=== PATIENT | male | born 1990 | race African-American/Black ===

== ENCOUNTER 2016-09-21 04:32 | Emergency (ER) | payer OTHER ==
[~2016-09-21 04:32] MED LIST: AMOXICILLIN500 M1 PO; IBUPROFEN600 MG PO; IBUPROFEN800 MG PO; ZYRTEC PO
[2016-09-21 05:21] LABS: URINE SOURCE CLEAN CATCH
[2016-09-21 05:50] LABS: URINE APPEARANCE CLEAR; URINE BILIRUBIN NEG (NEG); URINE BLOOD NEG (NEG); URINE COLOR YELLOW; URINE GLUCOSE NEG (NEG); URINE KETONE TRACE (NEG); URINE LEUKOCYTE ESTERASE NEG (NEG); URINE NITRATE NEG (NEG); URINE PROTEIN TRACE (NEG)
[2016-09-21 05:58] LABS: CULTURE INDICATED? NO
[2016-09-23 23:06] LABS: CHLAMYDIA TRACH Not Detected (Not Detected); N GONOR Not Detected (Not Detected)
== END 2016-09-21 06:35 | disposition home or self-care (01) ==
LOC: CED 04:32
PROVIDERS: Nurse Practitioner
DX: R59.1 Generalized enlarged lymph nodes (principal)
CPT/HCPCS: 81003; 87491; 87591; 96372; 99283; J0696

== ENCOUNTER 2016-10-29 23:16 | Emergency (ER) | payer OTHER ==
[~2016-10-29] VITALS: Ht 182.9 cm; Wt 72.6 kg
== END 2016-10-30 00:55 | disposition home or self-care (01) ==
LOC: CED 23:16
DX: S06.0X0A Concussion without loss of consciousness, initial encounter (principal); V49.00XA Driver injured in collision with unspecified motor vehicles in nontraffic accident, initial encounter; Y92.410 Unspecified street and highway as the place of occurrence of the external cause
CPT/HCPCS: 99284